=== PATIENT | female | born 1990 ===

== ENCOUNTER → 2022-06-06 09:10 | Outpatient (BNVA) | payer MEDICAID, SELFPAY | PROVIDERS: Family Provider Pediatrics; Visit Provider Otolaryngology | DX: V49.9XXA Car occupant (driver) (passenger) injured in unspecified traffic accident, initial encounter (principal); S02.839A Fracture of medial orbital wall, unspecified side, initial encounter for closed fracture | CPT/HCPCS: 99202; 99203 ==